=== PATIENT | male | born 1955 | race Caucasian/White ===

== ENCOUNTER 2018-05-10 16:15 | Outpatient (RCR) | payer BC | END 2018-05-13 | disposition home or self-care (01) | LOC: PT | DX: Z47.89 Encounter for other orthopedic aftercare (principal) ==

== ENCOUNTER 2018-06-28 16:15 | Outpatient (RCR) | payer BC | END 2018-06-28 16:45 | LOC: PT | DX: Z47.89 Encounter for other orthopedic aftercare (principal); Z98.890 Other specified postprocedural states ==